=== PATIENT | female | born 1990 | race Caucasian/White ===

== ENCOUNTER 2017-06-19 21:22 | Outpatient (CLI) | payer SELFPAY ==
[2017-06-19] MEDS ORDERED: LACTATED RINGERS 1,000 ML IV ONE (21:53)
[2017-06-19 22:05] VITALS: BP 126/84
[2017-06-19 22:36] LABS: Bilirubin,Urine NEG (Negative); Blood,Urine SM (Negative); Ketones,Urine NEG (Negative); Leukocyte Esterase,Urine NEG (Negative); Nitrite,Urine NEG (Negative); Protein,Urine <15 mg/dL mg/dL (Negative); RBC,Urine < 1.0 /HPF (0.0-6.0); Urobilinogen,Urine < 2.0 mg/dL (<2.0)
[2017-06-19] MEDS ORDERED: LACTATED RINGERS 500 ML IV ONE (22:54)
[2017-06-19] MEDS: BRETHINE SUB-Q SCH ×2 (22:57→23:20)
[2017-06-20] MEDS: BRETHINE SUB-Q SCH (00:17)
== END 2017-06-20 01:00 | disposition home or self-care (01) ==
LOC: EDSTATUS 21:34 → TRG 21:37
PROVIDERS: ATTEND Obstetrics & Gynecology
DX: O26.892 Other specified pregnancy related conditions, second trimester (principal); M54.5 Low back pain; Z3A.25 25 weeks gestation of pregnancy
CPT/HCPCS: 36415; 81001; 82731; 96360; 96372; J3105; J7120